=== PATIENT | female | born 1955 | race Caucasian/White ===

== ENCOUNTER 2016-08-09 12:24 | Emergency (ER) | payer SELFPAY ==
[~2016-08-09 12:24] MED LIST: ASPI-535; ATEN-138; CLOP75TA19; IBAN2.5T; LISI5TAB; METF500T4; SMV40T; XANAX
== END 2016-08-09 12:30 | disposition left against medical advice (07) ==
LOC: E/R 12:24
DX: Z53.21 Procedure and treatment not carried out due to patient leaving prior to being seen by health care provider (principal)